=== PATIENT | female | born 1985 | race Caucasian/White ===

== ENCOUNTER 2022-09-24 13:14 | Observation (INO) | payer OTHER ==
[~2022-09-24] VITALS: Ht 162.6 cm; Wt 69.4 kg
[2022-09-24 13:28] VITALS: BP 116/76
--- NOTE | 2022-09-24 13:40 | NUR ---
WHILE JENNIFER MOSQUERA WAS EXAMINING PT, PT STATED SHE WAS COMPLAINING OF LOWER ABD PAIN. PT WAS THEN TAKEN TO L&D, DISCHARGED FROM ER.
[2022-09-24 15:02] VITALS: BP 107/69
== END 2022-09-24 14:55 | disposition home or self-care (01) ==
LOC: MLD 13:45 → EDSTATUS 13:52
PROVIDERS: ADMIT Obstetrics & Gynecology; ATTEND Obstetrics & Gynecology
DX: O26.892 Other specified pregnancy related conditions, second trimester (principal); R10.2 Pelvic and perineal pain; R31.9 Hematuria, unspecified; Z3A.26 26 weeks gestation of pregnancy
CPT/HCPCS: 99284; G0378